=== PATIENT | female | born 1985 | race African-American/Black ===

== ENCOUNTER 2018-08-31 09:41 | Emergency (ER) | payer SELFPAY ==
--- NOTE | 2018-08-31 11:22 | XRay Report ---
RIGHT SHOULDER: Fall, pain. Routine views demonstrate normal bony and soft tissue structures with normal joint alignment of the shoulder. IMPRESSION: Normal study. RIGHT CLAVICLE: Fall, pain The bony architecture is intact without evidence of fracture or dislocation. No significant soft tissue abnormality is seen. IMPRESSION: Normal right clavicle.
[2018-08-31] MEDS ORDERED: IBUPROFEN PO ONE (11:49)
[2018-08-31] MEDS ORDERED: PERCOCET 5/325 PO ONE (11:49)
--- NOTE | 2018-08-31 11:50 | Emergency Department Report ---
ED General Adult HPI - General Chief complaint: Shoulder Injury Stated complaint: FELL/RT CLAVICAL PAIN Time Seen by Provider: 08/31/18 11:14 Source: patient, RN notes reviewed Mode of arrival: Ambulatory Limitations: Physical Limitation - History of Present Illness Initial comments: This is a 33-year-old female who is not known to this provider previously, who is left-hand dominant, and reports that she is not . Patient presents to the emergency room with the complaint of right shoulder and right clavicle pain after mechanical fall earlier today. No other injuries. There is no midline neck pain, headache, chest pain, abdominal pain or shortness of breath. There is no weakness or numbness. Patient is concerned she may have a clavicle fracture or dislocation. Her pain is sharp, increases with palpation, and decreases with rest. It does not radiate anywhere. No other injuries. No other complaints. -: Sudden Location: right, upper extremity Radiation: non-radiation Quality: aching, sharp Consistency: constant Improves with: rest Worsens with: movement Associated Symptoms: denies other symptoms - Related Data Previous Rx's Medication Instructions Recorded Last Taken Type Acetaminophen [Tylenol Arthritis] 650 mg PO Q6HR PRN #30 tablet.er 08/31/18 Unknown Rx Ibuprofen [Motrin] 600 mg PO Q8H PRN #30 tablet 08/31/18 Unknown Rx Allergies Allergy/AdvReac Type Severity Reaction Status Date / Time No Known Allergies Allergy Unverified 10/21/14 23:36 ED Review of Systems ROS: Stated complaint: FELL/RT CLAVICAL PAIN Other details as noted in HPI Constitutional: denies: fever, malaise Eyes: denies: eye discharge ENT: denies: epistaxis Respiratory: denies: cough Cardiovascular: denies: chest pain Gastrointestinal: denies: abdominal pain Musculoskeletal: arthralgia, myalgia Skin: denies: lesions Neurological: denies: weakness, numbness, paresthesias, confusion ED Past Medical Hx - Past Medical History Previous Medical History?: No - Surgical History Past Surgical History?: Yes Additional Surgical History: HERNIA REPAIR, C/S - Social History Smoking Status: Current Every Day Smoker Substance Use Type: None - Medications Home Medications: Home Medications Medication Instructions Recorded Confirmed Last Taken Type Acetaminophen [Tylenol Arthritis] 650 mg PO Q6HR PRN #30 tablet.er 08/31/18 Unknown Rx Ibuprofen [Motrin] 600 mg PO Q8H PRN #30 tablet 08/31/18 Unknown Rx ED Physical Exam - General Limitations: Physical Limitation General appearance: alert, anxious, obese - Head Head exam: Present: atraumatic, normocephalic - Eye Eye exam: Present: normal appearance, EOMI. Absent: nystagmus - ENT ENT exam: Present: normal exam, normal orophraynx, mucous membranes moist, normal external ear exam - Neck Neck exam: Present: normal inspection, full ROM. Absent: tenderness, meningismus - Respiratory Respiratory exam: Present: normal lung sounds bilaterally. Absent: respiratory distress - Cardiovascular Cardiovascular Exam: Present: regular rate, normal rhythm, normal heart sounds. Absent: bradycardia, tachycardia, irregular rhythm, systolic murmur, diastolic murmur, rubs, gallop - GI/Abdominal GI/Abdominal exam: Present: soft. Absent: distended, tenderness, guarding, rebound, rigid, pulsatile mass - Extremities Exam Extremities exam: Present: normal inspection, full ROM, tenderness (there is right shoulder tenderness. There is right elbow tenderness. There is no distal right upper extremity tenderness. 2+ pulses noted in the bilateral upper extremities. Compartments soft. Sensation intact to light touch in the bilateral deltoid, median, radial, ulnar distribution. Thumb opposition intact. Finger intrinsics intact in the right upper extremity.), pedal edema - Back Exam Back exam: Present: normal inspection, full ROM. Absent: tenderness, CVA tenderness (R), paraspinal tenderness, vertebral tenderness - Neurological Exam Neurological exam: Present: alert, oriented X3, CN II-XII intact, normal gait, other (Extraocular movements intact. Tongue midline. No facial droop. Facial sensation intact to light touch in the V1, V2, V3 distribution bilaterally. 5 and 5 strength in 4 extremities.. Sensation is intact to light touch in 4 extremities.). Absent: motor sensory deficit - Psychiatric Psychiatric exam: Present: normal affect, normal mood - Skin Skin exam: Present: warm, dry, intact, normal color. Absent: rash ED Course Vital Signs 08/31/18 08/31/18 08/31/18 10:14 11:10 12:01 Temperature 98.2 F Pulse Rate 78 Respiratory 18 18 18 Rate Blood Pressure 134/96 Blood Pressure [Left] O2 Sat by Pulse 100 100 Oximetry 08/31/18 08/31/18 12:02 12:27 Temperature 98 F Pulse Rate 81 Respiratory 18 18 Rate Blood Pressure Blood Pressure 144/91 [Left] O2 Sat by Pulse 100 Oximetry ED Medical Decision Making - Lab Data Vital Signs 08/31/18 08/31/18 08/31/18 10:14 11:10 12:01 Temperature 98.2 F Pulse Rate 78 Respiratory 18 18 18 Rate Blood Pressure 134/96 Blood Pressure [Left] O2 Sat by Pulse 100 100 Oximetry 08/31/18 08/31/18 12:02 12:27 Temperature 98 F Pulse Rate 81 Respiratory 18 18 Rate Blood Pressure Blood Pressure 144/91 [Left] O2 Sat by Pulse 100 Oximetry - Radiology Data Radiology results: report reviewed, image reviewed X-ray of the shoulder, x-ray of the clavicle, x-ray of the humerus all negative for acute disease. - Medical Decision Making Differential diagnosis, including but not limited to: Sprain, strain, fracture, dislocation Assessment and plan: 33-year-old female with right shoulder, right clavicle pain, right elbow pain with manipulation of the shoulder. No evidence of neurovascular deficit. No midline cervical spine tenderness.Patient is clinically sober at this time. The cervical spine is cleared through nexus and chinese c spine rule There is no radiographic evidence of fracture or dislocation. Full range of motion to the distal finger and wrist. No evidence of tendon dysfunction. Mostly has a sprain or strain. Patient is counseled to expect to be sore over the next few days. Patient will be discharged with instructions to follow up with outpatient orthopedics. She may also follow up with a primary care doctor. Critical care attestation.: If time is entered above; I have spent that time in minutes in the direct care of this critically ill patient, excluding procedure time. ED Disposition Clinical Impression: Right arm pain Disposition: DC-01 TO HOME OR SELFCARE Is pt being admited?: No Does the pt Need Aspirin: No Condition: Good Instructions: Shoulder Sprain (ED) Additional Instructions: Pain typically gets worse before it gets better after blunt trauma. Rest, avoid heavy lifting, and avoid strenuous physical activities. Take pain medications as needed/directed. Put the right upper extremity through range of motion as physically tolerated. Pain typically will improve in 5-7 days after blunt trauma. For persistent pain, follow-up with a primary care doctor or orthopedic physician within the next 7-10 days. Return to the emergency room right away with new pain, worsened pain, migration of pain, productive vomiting, change in mental status, confusion, new, worsening or different symptoms. Prescriptions: Acetaminophen [Tylenol Arthritis] 650 mg PO Q6HR PRN #30 tablet.er PRN Reason: Pain Ibuprofen [Motrin] 600 mg PO Q8H PRN #30 tablet PRN Reason: Pain Referrals: ASHLEY RIZO MD [Primary Care Provider] - 7-10 days JULIETA BROWN MD [Staff Physician] - 7-10 days
[2018-08-31 12:27] VITALS: BP 144/91
--- NOTE | 2018-08-31 13:22 | XRay Report ---
Right humerus, right elbow: Trauma, pain. AP and lateral views of the humerus as well as AP and lateral views of the elbow are included. The humerus is well-positioned within the glenoid and there is normal alignment and positioning of the elbow. The bones appear well-mineralized. There is no fracture and no bone lesion identified. The soft tissues are unremarkable. Impression: Normal exam.
== END 2018-08-31 13:58 | disposition home or self-care (01) ==
LOC: ED 09:41
DX: M25.511 Pain in right shoulder (principal); M25.521 Pain in right elbow; M79.621 Pain in right upper arm; F17.200 Nicotine dependence, unspecified, uncomplicated; W18.39XA Other fall on same level, initial encounter; Y93.89 Activity, other specified; Y92.89 Other specified places as the place of occurrence of the external cause; Y99.8 Other external cause status
CPT/HCPCS: 99283

== ENCOUNTER 2021-05-17 16:40 | Emergency (ER) | payer MEDICAID ==
[2021-05-17 16:55] VITALS: BP 114/78
[2021-05-17] MEDS ORDERED: LIDOCAINE (1%) 10 MG/1 ML VIAL 20 ML MDV INFILTRATI ONE (17:25)
[2021-05-17] MEDS ORDERED: ACETAMINOPHEN W/CODEINE 300-30 MG TAB PO ONE (17:26)
--- NOTE | 2021-05-17 17:26 | Emergency Department Report ---
- General Chief complaint: Skin/Abscess/Foreign Body Stated complaint: 4MO POSS BOIL OR CYST BUTTOCKS AREA Time Seen by Provider: 05/17/21 17:11 Source: patient Mode of arrival: Ambulatory Limitations: No Limitations - History of Present Illness Initial comments: 36-year-old denies any significant past medical history was currently 4 months presents to the ER today with a swollen painful area to her right buttocks. Patient states that it started 2 days ago and she has been getting worse. She states that she has not been able to sit due to the pain. Also is more painful with ambulation. She also has had decreased appetite due to the pain. She states that she has had similar symptoms in the past, but milder and never had to come to the ER or see a provider for it, with warm compresses usually resolves on its own. She states that she has tried warm compresses without much relief. She is also been taking Tylenol without much relief of the pain. She denies any related symptoms. MD complaint: abscess/boil - Related Data Previous Rx's Medication Instructions Recorded Last Taken Type Acetaminophen [Tylenol Arthritis] 650 mg PO Q6HR PRN #30 tablet.er 08/31/18 Unknown Rx Ibuprofen [Motrin] 600 mg PO Q8H PRN #30 tablet 08/31/18 Unknown Rx Acetaminophen/Codeine [Tylenol 1 tab PO Q6H PRN #10 tab 05/17/21 Unknown Rx /Codeine # 3 tab] Clindamycin [Clindamycin CAP] 300 mg PO Q6H #40 capsule 05/17/21 Unknown Rx Allergies Allergy/AdvReac Type Severity Reaction Status Date / Time No Known Allergies Allergy Verified 05/17/21 16:49 Abscess Boil HPI - HPI Chief Complaint: Skin/Abscess/Foreign Body Stated Complaint: 4MO POSS BOIL OR CYST BUTTOCKS AREA Time Seen by Provider: 05/17/21 17:11 Home Medications: Previous Rx's Medication Instructions Recorded Last Taken Type Acetaminophen [Tylenol Arthritis] 650 mg PO Q6HR PRN #30 tablet.er 08/31/18 Unknown Rx Ibuprofen [Motrin] 600 mg PO Q8H PRN #30 tablet 08/31/18 Unknown Rx Acetaminophen/Codeine [Tylenol 1 tab PO Q6H PRN #10 tab 05/17/21 Unknown Rx /Codeine # 3 tab] Clindamycin [Clindamycin CAP] 300 mg PO Q6H #40 capsule 05/17/21 Unknown Rx Allergies/Adverse Reactions: Allergies Allergy/AdvReac Type Severity Reaction Status Date / Time No Known Allergies Allergy Verified 05/17/21 16:49 ED Review of Systems ROS: Stated complaint: 4MO POSS BOIL OR CYST BUTTOCKS AREA Other details as noted in HPI Comment: All other systems reviewed and negative Constitutional: denies: chills, fever Eyes: denies: eye pain, eye discharge, vision change ENT: denies: ear pain, throat pain, dental pain, hearing loss, congestion Respiratory: denies: cough, shortness of breath, SOB with exertion, SOB at rest, wheezing Cardiovascular: denies: chest pain, palpitations Endocrine: no symptoms reported Gastrointestinal: denies: abdominal pain, nausea, vomiting, diarrhea, constipation, hematemesis, hematochezia Genitourinary: denies: urgency, dysuria, discharge Musculoskeletal: denies: back pain, joint swelling, arthralgia Skin: other (Abscess). denies: rash, lesions Neurological: denies: headache, weakness, numbness, paresthesias, confusion, abnormal gait, vertigo Psychiatric: denies: anxiety, depression, auditory hallucinations, visual hallucinations, homicidal thoughts, suicidal thoughts Hematological/Lymphatic: denies: easy bleeding, easy bruising, swollen glands ED Past Medical Hx - Past Medical History Previous Medical History?: No - Surgical History Past Surgical History?: Yes Additional Surgical History: HERNIA REPAIR, C/S - Social History Smoking Status: Current Every Day Smoker Substance Use Type: None - Medications Home Medications: Home Medications Medication Instructions Recorded Confirmed Last Taken Type Acetaminophen [Tylenol Arthritis] 650 mg PO Q6HR PRN #30 tablet.er 08/31/18 Unknown Rx Ibuprofen [Motrin] 600 mg PO Q8H PRN #30 tablet 08/31/18 Unknown Rx Acetaminophen/Codeine [Tylenol 1 tab PO Q6H PRN #10 tab 05/17/21 Unknown Rx /Codeine # 3 tab] Clindamycin [Clindamycin CAP] 300 mg PO Q6H #40 capsule 05/17/21 Unknown Rx ED Physical Exam - General Limitations: No Limitations General appearance: alert, in distress (secondary to pain ) - Head Head exam: Present: atraumatic, normocephalic, normal inspection - Eye Eye exam: Present: normal appearance, PERRL, EOMI Pupils: Present: normal accommodation - Respiratory Respiratory exam: Present: normal lung sounds bilaterally. Absent: respiratory distress, wheezes, rales, rhonchi - Cardiovascular Cardiovascular Exam: Present: regular rate, normal rhythm, normal heart sounds - Back Exam Back exam: Present: other (Approximately 3 cm x 2 cm indurated, erythematous, fluctuant area noted to in the left upper cheek. No streaking cellulitis or significant lymphangitis, no drainage; no extension into the perirectal/ rectal area.) - Neurological Exam Neurological exam: Present: alert, oriented X3, CN II-XII intact, normal gait ED Course Vital Signs 05/17/21 16:53 Temperature 98.5 F Pulse Rate 101 H Respiratory 20 Rate Blood Pressure 114/78 O2 Sat by Pulse 98 Oximetry - I & D Left Buttocks Type of Procedure: Simple Site: 2cm x 3cm Blade Size: 11 I & D Procedure: betadine prep, sterile dressing applied Progress: Anesthesia used--1% lidocaine Moderate amount of pus drained No culture obtained No packing placed Wound dressed Patient tolerated procedure well without any complications Critical care attestation.: If time is entered above; I have spent that time in minutes in the direct care of this critically ill patient, excluding procedure time. ED Disposition Clinical Impression: Abscess of buttock, left Disposition: 01 HOME / SELF CARE / HOMELESS Is pt being admited?: No Does the pt Need Aspirin: No Condition: Stable Instructions: Skin Abscess, [id number], Incision and Drainage, Care After Additional Instructions: I recommend a take the clindamycin as prescribed. Take the Tylenol threes only as needed for severe pain. Do not take any additional Tylenol if you take the Tylenol threes. Keep the wound clean daily with soap and water. Dry well after each cleaning and apply a dressing. Do this daily until the wound closes. Follow-up closely with your [employer]PR[employer]ICE and or PCP. Also recommend follow-up with the general surgeon if this area becomes a recurrent problem for you. Prescriptions: Clindamycin [Clindamycin CAP] 300 mg PO Q6H #40 capsule Acetaminophen/Codeine [Tylenol /Codeine # 3 tab] 1 tab PO Q6H PRN #10 tab PRN Reason: Pain , Severe (7-10) Referrals: PRIMARY CARE,MD [Primary Care Provider] - 3-5 Days ROSETTE BARNETT MD [Staff Physician] - 3-5 Days (General Surgeon) Forms: Work/School Release Form(ED) Time of Disposition: 17:56 Print Language: AUSTRALIAN
== END 2021-05-17 18:11 | disposition home or self-care (01) ==
LOC: ED 16:40
DX: O99.712 Diseases of the skin and subcutaneous tissue complicating pregnancy, second trimester (principal); L02.31 Cutaneous abscess of buttock; Z98.890 Other specified postprocedural states; F17.200 Nicotine dependence, unspecified, uncomplicated; Z3A.16 16 weeks gestation of pregnancy
CPT/HCPCS: 99281

== ENCOUNTER 2021-07-27 01:29 | Emergency (ER) | payer MEDICAID ==
[2021-07-27] MEDS ORDERED: HYDROcodone/ACETAMINOPHEN 5-325 MG TAB PO ONE (03:54)
[2021-07-27] MEDS ORDERED: CLINDAMYCIN 150 MG CAP PO ONE (03:54)
[2021-07-27] MEDS ORDERED: ONDANSETRON 4 MG ODT TAB PO ONE (03:54)
--- NOTE | 2021-07-27 03:58 | Emergency Department Report ---
ED General Adult HPI - General Chief complaint: Skin/Abscess/Foreign Body Stated complaint: ABSCESS PUI?: No Source: patient Mode of arrival: Ambulatory Limitations: No Limitations - History of Present Illness Initial comments: Patient is a A0 36-year-old -[place] female who is approximately 24 weeks gestation who presented to the ED with complaint of acute onset persistent painful swollen mild erythematous maculopapular rash on left gluteal cleft for the last 2 days. Patient states that the pain is worsened in the last 24 hours. Patient denies fever, chills, nausea and vomiting chest pain or shortness of breath, abdominal pain, vaginal bleeding, vaginal discharge, dizziness, syncope or traumatic injury. MD Complaint: Painful swollen rash on left gluteal cleft -: Sudden, days(s) (2) Location: buttocks Radiation: non-radiation Severity scale (0 -10): 8 Quality: aching, sharp Consistency: constant Improves with: none Worsens with: movement, rest Associated Symptoms: denies other symptoms, rash (Swollen, painful rash on left gluteal cleft). denies: confusion, chest pain, cough, diaphoresis, fever/chills, headaches, loss of appetite, malaise, nausea/vomiting, shortness of breath, syncope, weakness Treatments Prior to Arrival: none - Related Data Previous Rx's Medication Instructions Recorded Last Taken Type Acetaminophen [Tylenol Arthritis] 650 mg PO Q6HR PRN #30 tablet.er 08/31/18 Unknown Rx Ibuprofen [Motrin] 600 mg PO Q8H PRN #30 tablet 08/31/18 Unknown Rx Acetaminophen/Codeine [Tylenol 1 tab PO Q6H PRN #10 tab 05/17/21 Unknown Rx /Codeine # 3 tab] Clindamycin [Clindamycin CAP] 300 mg PO Q6H #40 capsule 05/17/21 Unknown Rx Acetaminophen [Tylenol] 500 mg PO Q6HR PRN #60 tablet 07/27/21 Unknown Rx Clindamycin [Clindamycin CAP] 300 mg PO Q8HR #60 capsule 07/27/21 Unknown Rx Allergies Allergy/AdvReac Type Severity Reaction Status Date / Time No Known Allergies Allergy Verified 05/17/21 16:49 ED Review of Systems ROS: Stated complaint: ABSCESS Other details as noted in HPI Constitutional: denies: chills, fever Eyes: denies: eye pain, eye discharge, vision change ENT: denies: ear pain, throat pain Respiratory: denies: cough, shortness of breath, wheezing Cardiovascular: denies: chest pain, palpitations Endocrine: no symptoms reported Gastrointestinal: denies: abdominal pain, nausea, diarrhea Genitourinary: denies: urgency, dysuria, discharge Musculoskeletal: denies: back pain, joint swelling, arthralgia Skin: rash (Swollen, painful left gluteal cleft rash). denies: lesions Neurological: denies: headache, weakness, paresthesias Psychiatric: denies: anxiety, depression Hematological/Lymphatic: denies: easy bleeding, easy bruising ED Past Medical Hx - Past Medical History Previous Medical History?: No - Surgical History Past Surgical History?: Yes Additional Surgical History: HERNIA REPAIR, C/S - Social History Smoking Status: Current Every Day Smoker Substance Use Type: None - Medications Home Medications: Home Medications Medication Instructions Recorded Confirmed Last Taken Type Acetaminophen [Tylenol Arthritis] 650 mg PO Q6HR PRN #30 tablet.er 08/31/18 Unknown Rx Ibuprofen [Motrin] 600 mg PO Q8H PRN #30 tablet 08/31/18 Unknown Rx Acetaminophen/Codeine [Tylenol 1 tab PO Q6H PRN #10 tab 05/17/21 Unknown Rx /Codeine # 3 tab] Clindamycin [Clindamycin CAP] 300 mg PO Q6H #40 capsule 05/17/21 Unknown Rx Acetaminophen [Tylenol] 500 mg PO Q6HR PRN #60 tablet 07/27/21 Unknown Rx Clindamycin [Clindamycin CAP] 300 mg PO Q8HR #60 capsule 07/27/21 Unknown Rx ED Physical Exam - General Limitations: No Limitations General appearance: alert, in no apparent distress - Head Head exam: Present: atraumatic, normocephalic, normal inspection - Eye Eye exam: Present: normal appearance, PERRL, EOMI Pupils: Present: normal accommodation - ENT ENT exam: Present: normal exam, normal orophraynx, mucous membranes moist, TM's normal bilaterally, normal external ear exam - Neck Neck exam: Present: normal inspection, full ROM - Respiratory Respiratory exam: Present: normal lung sounds bilaterally. Absent: respiratory distress, wheezes, rales, rhonchi, stridor, chest wall tenderness, accessory muscle use, decreased breath sounds, prolonged expiratory - Cardiovascular Cardiovascular Exam: Present: regular rate, normal rhythm, normal heart sounds. Absent: systolic murmur, diastolic murmur, rubs, gallop - GI/Abdominal GI/Abdominal exam: Present: soft, normal bowel sounds. Absent: distended, tenderness, guarding, rebound, hyperactive bowel sounds, hypoactive bowel sounds, organomegaly, mass - Extremities Exam Extremities exam: Present: normal inspection, full ROM, normal capillary refill - Back Exam Back exam: Present: normal inspection, full ROM. Absent: tenderness, CVA tenderness (R), CVA tenderness (L), muscle spasm, paraspinal tenderness, vertebral tenderness - Neurological Exam Neurological exam: Present: alert, oriented X3, CN II-XII intact, normal gait, reflexes normal - Psychiatric Psychiatric exam: Present: normal affect, normal mood - Skin Skin exam: Present: warm, dry, intact, normal color, rash (Swollen, severely tender mild erythematous maculopapular rash on left gluteal cleft), erythema. Absent: diaphoretic, urticaria, vesicles, petechiae, abrasion, ecchymosis ED Course Vital Signs 07/27/21 01:32 Temperature 98.3 F Pulse Rate 89 Respiratory 17 Rate Blood Pressure 116/68 O2 Sat by Pulse 99 Oximetry ED Medical Decision Making - Medical Decision Making This is a A0 36-year-old -[place]oven[place] female who is approximately 24 weeks gestation who presented to the ED with complaint of acute onset persistent painful swollen mild erythematous maculopapular rash on left gluteal cleft for the last 2 days. Patient states that the pain is worsened in the last 24 hours. In the ED, patient is alert and oriented x3 and is not in any distress. Patient was treated for pain in the ED and also given initial oral antibiotics. Patient was advised to return to the ED immediately if symptoms get worse, otherwise follow-up with her primary care physician in 7 to 10 days for reevaluation - Differential Diagnosis cellulitis, cutaneous abscess, folliculitis Critical care attestation.: If time is entered above; I have spent that time in minutes in the direct care of this critically ill patient, excluding procedure time. ED Disposition Clinical Impression: Cutaneous abscess of buttock, Cellulitis of left buttock Disposition: HOME / SELF CARE / HOMELESS Is pt being admited?: No Does the pt Need Aspirin: No Condition: Stable Instructions: Skin Abscess, [id number], Cellulitis, Adult, [id number] Additional Instructions: Take medication with food, drink plenty fluids and follow-up with your primary care physician or AUTHOR physician in 7 to 10 days for reevaluation. Return to the ED immediately if your symptoms get worse. Prescriptions: Acetaminophen [Tylenol] 500 mg PO Q6HR PRN #60 tablet PRN Reason: pain or fever Clindamycin [Clindamycin CAP] 300 mg PO Q8HR #60 capsule Referrals: [facility] [Provider Group] - 3-5 Days Time of Disposition: 03:56 Print Language: JAPANESE
[2021-07-27 04:54] VITALS: BP 146/75
== END 2021-07-27 03:25 | disposition home or self-care (01) ==
LOC: ED 01:29
DX: O26.892 Other specified pregnancy related conditions, second trimester (principal); L02.31 Cutaneous abscess of buttock; L03.317 Cellulitis of buttock; F17.200 Nicotine dependence, unspecified, uncomplicated; Z98.890 Other specified postprocedural states; Z79.899 Other long term (current) drug therapy; Z3A.24 24 weeks gestation of pregnancy
CPT/HCPCS: 99282; J3490; Q0162